=== PATIENT | female | born 1955 | race Two or more races ===

== ENCOUNTER → 2019-08-05 11:40 | Outpatient (CLI) | payer OTHER | END | disposition home or self-care (01) | LOC: LAB 11:40 | DX: R19.00 Intra-abdominal and pelvic swelling, mass and lump, unspecified site (principal); K62.5 Hemorrhage of anus and rectum; C19 Malignant neoplasm of rectosigmoid junction ==

== ENCOUNTER 2019-08-12 05:09 | Day surgery (SDC) | payer OTHER | END 2019-08-12 11:20 | disposition home or self-care (01) | LOC: AMB-ENDOS 05:09 | DX: C19 Malignant neoplasm of rectosigmoid junction (principal); K62.5 Hemorrhage of anus and rectum ==